=== PATIENT | male | born 1970 | race Two or more races ===

== ENCOUNTER 2022-07-03 11:57 | Emergency (ER) | payer OTHER ==
[~2022-07-03] VITALS: Ht 170.2 cm; Wt 68.0 kg
== END 2022-07-03 15:42 | disposition home or self-care (01) ==
LOC: ER 11:57
DX: U07.1 COVID-19 (principal)

== ENCOUNTER 2023-02-06 00:33 | Emergency (ER) | payer OTHER ==
[~2023-02-06] VITALS: Ht 172.7 cm; Wt 72.6 kg
[2023-02-06 04:58] LABS: HEMATOCRIT 37.3 % (39.0-48.0); HEMOGLOBIN 12.6 g/dL (13-16.00); MEAN CELL VOLUME 89.4 fL (80.0-100.00); MEAN CORPUSCULAR HEMOGLOBIN 30.3 pg (27.00-32.0); MEAN CORPUSCULAR HGB CONC 33.8 g/dl (32.0-36.0); PLATELET COUNT 149 K/uL (150-450); RED BLOOD COUNT 4.17 M/uL (4.00-6.00)
[2023-02-06 05:18] LABS: INR 1.03; PARTIAL THROMBOPLASTIN TIME 23.6 SECONDS (22.0-34.0); PROTHROMBIN TIME 10.8 SECONDS (9.0-11.5)
[2023-02-06 05:30] LABS: CALCIUM 8.7 mg/dL (8.5-10.1); CREATININE SERUM 1.08 mg/dL (0.70-1.30); GFR 71.8; POTASSIUM 3.8 mEq/L (3.5-5.1)
== END 2023-02-06 13:37 | disposition home or self-care (01) ==
LOC: ER
PROVIDERS: General Practice
DX: S82.142A Displaced bicondylar fracture of left tibia, initial encounter for closed fracture (principal); Y08.89XA Assault by other specified means, initial encounter; Y93.89 Activity, other specified; Y92.89 Other specified places as the place of occurrence of the external cause; S89.82XA Other specified injuries of left lower leg, initial encounter; S82.112A Displaced fracture of left tibial spine, initial encounter for closed fracture; S62.615A Displaced fracture of proximal phalanx of left ring finger, initial encounter for closed fracture

== ENCOUNTER 2024-09-16 15:32 | Emergency (ER) | payer OTHER ==
[~2024-09-16] VITALS: Ht 170.2 cm; Wt 68.0 kg
[2024-09-16 16:59] LABS: BASO % 1.1 % (0.1-1.2); EOS # 0.06 (0.04-0.54); EOS % 1.3 % (0.7-7.0); HEMATOCRIT 43.8 % (40.1-51.0); LYMPH # 1.87 (1.18-3.74); LYMPH % 40.5 % (19.3-53.1); MEAN CORPUSCULAR HEMOGLOBIN 30.5 pg (25.6-32.2); MONO # 1.08 (0.24-0.82); NEUT # 1.56 (1.56-6.13); NEUT % 33.7 % (34.0-71.1); PLATELET COUNT 158 K/uL (163-369); RED BLOOD COUNT 4.92 M/uL (4.63-6.08); RED CELL DISTRIBUTION WIDTH 12.7 % (11.6-14.4)
[2024-09-16 17:18] LABS: MONO % 23.4 % (4.7-12.5)
[2024-09-16 17:38] LABS: COVID-19 AG POSITIVE (NEGATIVE)
[2024-09-16 17:42] LABS: INFLUENZA A AG NEGATIVE (NEGATIVE); INFLUENZA B AG NEGATIVE (NEGATIVE)
== END 2024-09-16 19:01 | disposition home or self-care (01) ==
LOC: ER 15:32
PROVIDERS: General Practice
DX: U07.1 COVID-19 (principal)

== ENCOUNTER 2025-01-20 16:23 | Emergency (ER) | payer OTHER ==
[~2025-01-20] VITALS: Ht 170.2 cm; Wt 68.0 kg
[2025-01-20] MEDS ORDERED: ACETAMINOPHEN 500 MG GEL..CAP PO ONE ×2 (17:45→18:36)
[2025-01-20] MEDS ORDERED: ORPHENADRINE CITRATE 30 MG/ML AMPUL IM ONE (17:45)
[2025-01-20] MEDS ORDERED: ORPHENADRINE CITRATE 30 MG/ML AMPUL ONE (18:36)
[2025-01-20] MEDS ORDERED: NORFLEX100MG PO (22:34)
[2025-01-20] MEDS ORDERED: DICLOFENAC SODI50 MG PO (22:34)
== END 2025-01-20 22:54 ==
LOC: ER 16:23
DX: G44.309 Post-traumatic headache, unspecified, not intractable (principal); R07.89 Other chest pain